=== PATIENT | female | born 1965 | race Caucasian/White ===

== ENCOUNTER → 2023-03-27 10:09 | Outpatient (BNVA) | payer MEDICARE, OTHER, SELFPAY | PROVIDERS: PCP Nurse Practitioner; Visit Provider Internal Medicine Rheumatology | DX: Z79.899 Other long term (current) drug therapy (principal); M45.6 Ankylosing spondylitis lumbar region; Z11.59 Encounter for screening for other viral diseases; Z11.1 Encounter for screening for respiratory tuberculosis; M47.894 Other spondylosis, thoracic region; M41.84 Other forms of scoliosis, thoracic region; Z96.652 Presence of left artificial knee joint; M19.041 Primary osteoarthritis, right hand; M20.11 Hallux valgus (acquired), right foot | CPT/HCPCS: 36415; 72072; 73130; 73562; 73630; 85651; 86140; 86480; 86704; 86803; 86812; 87340; 99204 ==

== ENCOUNTER → 2023-05-21 12:50 | Outpatient (BNVA) | payer MEDICARE, OTHER, SELFPAY | PROVIDERS: PCP Nurse Practitioner; Visit Provider Internal Medicine Rheumatology | DX: M19.90 Unspecified osteoarthritis, unspecified site (principal); Z79.899 Other long term (current) drug therapy; Z71.85 Encounter for immunization safety counseling; R76.8 Other specified abnormal immunological findings in serum | CPT/HCPCS: 99214 ==

== ENCOUNTER → 2023-09-17 13:00 | Outpatient (BNVA) | payer MEDICARE, OTHER, SELFPAY | PROVIDERS: PCP Nurse Practitioner; Visit Provider Internal Medicine Rheumatology | DX: Z79.899 Other long term (current) drug therapy (principal); M19.90 Unspecified osteoarthritis, unspecified site; Z71.85 Encounter for immunization safety counseling; R76.8 Other specified abnormal immunological findings in serum | CPT/HCPCS: 36415; 80076; 82565; 85025; 86140; 99214 ==

== ENCOUNTER → 2024-02-18 12:37 | Outpatient (BNVA) | payer MEDICARE, OTHER, SELFPAY | PROVIDERS: PCP Nurse Practitioner; Visit Provider Internal Medicine Rheumatology | DX: M19.90 Unspecified osteoarthritis, unspecified site (principal); Z79.899 Other long term (current) drug therapy; Z71.85 Encounter for immunization safety counseling; R76.8 Other specified abnormal immunological findings in serum; Z86.19 Personal history of other infectious and parasitic diseases; M47.816 Spondylosis without myelopathy or radiculopathy, lumbar region; Z96.653 Presence of artificial knee joint, bilateral; E11.8 Type 2 diabetes mellitus with unspecified complications; M76.61 Achilles tendinitis, right leg; M76.62 Achilles tendinitis, left leg | CPT/HCPCS: 99214 ==

== ENCOUNTER → 2024-06-16 13:32 | Outpatient (BNVA) | payer MEDICARE, OTHER, SELFPAY | PROVIDERS: PCP Nurse Practitioner; Visit Provider Internal Medicine Rheumatology | DX: Z79.899 Other long term (current) drug therapy (principal); M06.00 Rheumatoid arthritis without rheumatoid factor, unspecified site; M19.90 Unspecified osteoarthritis, unspecified site; Z71.85 Encounter for immunization safety counseling; R76.8 Other specified abnormal immunological findings in serum; M76.62 Achilles tendinitis, left leg; M76.61 Achilles tendinitis, right leg; M51.369 Other intervertebral disc degeneration, lumbar region without mention of lumbar back pain or lower extremity pain; E11.9 Type 2 diabetes mellitus without complications; M17.0 Bilateral primary osteoarthritis of knee | CPT/HCPCS: 99214 ==

== ENCOUNTER → 2024-12-10 10:54 | Outpatient (BNVA) | payer MEDICARE, OTHER, SELFPAY | PROVIDERS: PCP Nurse Practitioner; Visit Provider Internal Medicine Rheumatology | DX: M19.90 Unspecified osteoarthritis, unspecified site (principal); Z79.899 Other long term (current) drug therapy; Z71.85 Encounter for immunization safety counseling; R76.8 Other specified abnormal immunological findings in serum | CPT/HCPCS: 36415; 80076; 82306; 82565; 85025; 85651; 86140; 86480; 86704; 86803; 87340; 99214 ==

== ENCOUNTER → 2025-05-21 09:45 | Outpatient (BNVA) | payer MEDICARE, OTHER, SELFPAY | PROVIDERS: PCP Nurse Practitioner; Visit Provider Specialist | DX: G43.711 Chronic migraine without aura, intractable, with status migrainosus (principal); G31.84 Mild cognitive impairment of uncertain or unknown etiology | CPT/HCPCS: 36415; 82233; 82234; 82542; 82607; 99205 ==

== ENCOUNTER → 2025-06-02 14:38 | Outpatient (BNVA) | payer MEDICARE, OTHER, SELFPAY | PROVIDERS: PCP Nurse Practitioner; Visit Provider Internal Medicine Rheumatology | DX: M06.09 Rheumatoid arthritis without rheumatoid factor, multiple sites (principal); Z79.899 Other long term (current) drug therapy; Z71.85 Encounter for immunization safety counseling; R76.89 Other specified abnormal immunological findings in serum; M76.61 Achilles tendinitis, right leg; M76.62 Achilles tendinitis, left leg; I50.9 Heart failure, unspecified; Z96.653 Presence of artificial knee joint, bilateral; E11.9 Type 2 diabetes mellitus without complications | CPT/HCPCS: 36415; 80076; 82565; 85025; 85651; 86140; 99214 ==